=== PATIENT | male | born 1950 | race Native Hawaiian/Other Pacific Islander ===

== ENCOUNTER 2018-03-08 13:04 | Emergency (ER) | payer MEDICARE ==
[2018-03-08 13:39] VITALS: TEMP 98.2
--- NOTE | 2018-03-08 16:52 | C.PDOC ---
History Of Present Illness 67 year old male with PMHx of diabetes and HTN presents to the ED complaining of new onset abdominal pain for 2 weeks. Reports pain is intermittent in nature and does not radiate anywhere. Also reports pain is worse when he laughs, moves, or eats. Pt notes the pain started when he got shingles, reports the rash improved but the pain persists. Denies any fever, chills, cough, nausea, diarrhea, vomiting, chest pain, palpitations, shortness of breath, dizziness or urinary symptoms. Time Seen by Provider: 03/08/18 15:34 Chief Complaint (Nursing): Abdominal Pain History Per: Patient History/Exam Limitations: no limitations Onset/Duration Of Symptoms: Days Current Symptoms Are (Timing): Still Present Location Of Pain/Discomfort: Other (upper abdomen ) Radiation Of Pain To:: None Quality Of Discomfort: "Pain" Associated Symptoms: denies: Fever, Chills, Nausea, Vomiting, Diarrhea, Chest Pain, Urinary Symptoms Exacerbating Factors: Movement, Food, Other (laughing ) Past Medical History Reviewed: Historical Data, Nursing Documentation, Vital Signs Vital Signs: Last Vital Signs Temp 98.2 F 03/08/18 13:37 Pulse 77 03/08/18 13:37 Resp 20 03/08/18 13:37 BP 135/71 03/08/18 13:37 Pulse Ox 96 03/08/18 13:37 - Medical History PMH: Diabetes, HTN Surgical History: No Surg Hx Family History: States: No Known Family Hx - Social History Hx Alcohol Use: No Hx Substance Use: No - Immunization History Hx Tetanus Toxoid Vaccination: No Hx Influenza Vaccination: No Review Of Systems Except As Marked, All Systems Reviewed And Found Negative. Constitutional: Negative for: Fever, Chills Cardiovascular: Negative for: Chest Pain, Palpitations Respiratory: Negative for: Shortness of Breath Gastrointestinal: Positive for: Abdominal Pain. Negative for: Nausea, Vomiting, Diarrhea Genitourinary: Negative for: Dysuria, Incontinence, Hematuria Physical Exam - Physical Exam Appears: Non-toxic, No Acute Distress Skin: Warm, Dry Head: Atraumatic, Normacephalic Eye(s): bilateral: Normal Inspection, EOMI Nose: Normal Oral Mucosa: Moist Neck: Normal ROM, Supple Chest: Symmetrical Cardiovascular: Rhythm Regular Respiratory: Normal Breath Sounds, No Rales, No Rhonchi, No Wheezing Gastrointestinal/Abdominal: Soft, Tenderness (upper abdominal tenderness ), No Distention, No Guarding, No Rebound, Other (healing vesicular rash to left torso, do not cross the midline ) Extremity: Bilateral: Atraumatic, Normal Color And Temperature, Normal ROM Neurological/Psych: Oriented x3, Normal Speech Gait: Steady ED Course And Treatment - Laboratory Results Result Diagrams: 03/08/18 17:18 03/08/18 17:18 O2 Sat by Pulse Oximetry: 96 (RA) Pulse Ox Interpretation: Normal Progress Note: Pt was treated wiht protonix and toradol. On re-evalation, pa tient is resting comfortably, abdomen remains soft, and patient is tolerating PO. Patient feels comfortable going home. Pt was given labs and cT results and instructed strict follow up. Case discussed with DR Hart, vinh wiggins plan and discharge. Disposition - Disposition Referrals: Ronnie Matta MD [Staff Provider] - Disposition: HOME/ ROUTINE Disposition Time: 19:08 Condition: STABLE Additional Instructions: Follow up with your doctor and GI doctor in 1-2 days. Return to ER if symptoms persist or worsen. Prescriptions: Acetaminophen [Tylenol 325mg tab] 650 mg PO Q4 PRN #20 tab PRN Reason: Pain, Mild (1-3) Famotidine [Pepcid] 20 mg PO BID #10 tab Instructions: Acute Abdomen (Belly Pain), Adult (DC) Forms: [id number] (Scottish) - Clinical Impression Clinical Impression: Abdominal pain - PA / INTERNET AND [employer] BUSINESS PROJECT MANAGER / Resident Statement MD/DO has reviewed & agrees with the documentation as recorded. - Scribe Statement The provider has reviewed the documentation as recorded by the Anhibmarques Gannon All medical record entries made by the Georgiana were at my direction and personally dictated by me. I have reviewed the chart and agree that the record accurately reflects my personal performance of the history, physical exam, medical decision making, and the department course for this patient. I have also personally directed, reviewed, and agree with the discharge instructions and disposition.
[2018-03-08 17:30] LABS: BASO % 0.7 % (0.0-2.0); EOS # 0.1 K/uL (0.0-0.7); EOS % 2.2 % (0.0-4.0); HEMOGLOBIN 12.9 g/dL (12.0-18.0); LYMPH # 1.3 K/uL (1.0-4.3); LYMPH % 22.5 % (20.0-40.0); MEAN CELL VOLUME 87.3 fL (80.0-94.0); MEAN CORPUSCULAR HEMOGLOBIN 29.4 pg (27.0-31.0); MEAN CORPUSCULAR HGB CONC 33.6 g/dL (33.0-37.0); MEAN PLATELET VOLUME 6.8 fL (7.2-11.7); MONO # 0.6 K/uL (0.0-0.8); MONO % 9.6 % (0.0-10.0); NEUT # 3.9 K/uL (1.8-7.0); NRBC % 0.1 % (0.0-2.0); RBC 4.39 Mil/uL (4.40-5.90); RED CELL DISTRIBUTION WIDTH 14.3 % (11.5-14.5)
[2018-03-08 17:41] LABS: ALB/GLOB RATIO 1.2 (1.0-2.1); ALBUMIN 4.3 g/dL (3.5-5.0); CALCIUM 9.9 mg/dl (8.6-10.4)
[2018-03-08] MEDS ORDERED: Iodixanol 320 MG/ML 100 ML BOTTLE IV ONE (17:54)
[2018-03-08] MEDS ORDERED: Sodium Chloride 0.9% 1,000 ML IV ONE (18:34)
--- NOTE | 2018-03-08 18:39 | CT ---
Date of service: 03/08/2018 PROCEDURE: CT Abdomen and Pelvis with contrast HISTORY: abd pain COMPARISON: None available. TECHNIQUE: Contrast dose: 100 cc Visipaque 320 Radiation dose: Total exam DLP = 1007.74 mGy-cm. This CT exam was performed using one or more of the following dose reduction techniques: Automated exposure control, adjustment of the mA and/or kV according to patient size, and/or use of iterative reconstruction technique. FINDINGS: LOWER THORAX: Small ekbel-[id number]-[id number]-left pleural effusions and associated consolidations. LIVER: Unremarkable. GALLBLADDER AND BILE DUCTS: Unremarkable. PANCREAS: Unremarkable. SPLEEN: Unremarkable. ADRENALS: Bilateral nodular hypertrophy. KIDNEYS AND URETERS: The kidneys enhance symmetrically. Lobulated renal contours. Nonobstructing 5 mm left lower pole renal calculus. No hydronephrosis or obstructing calculus identified. Too small to characterize bilateral renal hypodensities; statistically likely cysts. VASCULATURE: No aortic aneurysm. Atherosclerotic calcifications/mural plaque present. BOWEL: Stomach is nondistended. Lack of oral contrast limits evaluation for bowel pathology. Bowel loops appear within normal limits of caliber without evidence of obstruction. APPENDIX: The appendix appears within normal limits of caliber. No secondary signs of acute appendicitis. PERITONEUM: No significant free fluid. No definite free air. LYMPH NODES: No bulky adenopathy identified. BLADDER: Unremarkable. REPRODUCTIVE: Unremarkable. BONES: Grade 1 anterolisthesis of L4 on L5. Degenerative changes. OTHER FINDINGS: None. IMPRESSION: Small bilateral pleural effusions and associated consolidations. Lobulated bilateral renal contours. Nonobstructing left lower pole renal calculus. Too small to characterize bilateral renal hypodensities; statistically likely cysts. Bilateral nodular hypertrophy of the adrenal glands.
[2018-03-08 18:45] LABS: URINE BILIRUBIN NEGATIVE (NEGATIVE); URINE BLOOD TRACE (NEGATIVE); URINE CLARITY Clear (Clear); URINE COLOR Straw (YELLOW); URINE GLUCOSE (UA) NORMAL (Normal); URINE LEUKOCYTE ESTERASE NEG Leu/uL (Negative); URINE PROTEIN NEGATIVE (NEGATIVE); URINE UROBILINOGEN NORMAL mg/dL (0.2-1.0)
[2018-03-08 19:31] VITALS: BP 128/85; PULSE 78; RESP 16
[2018-03-11 18:23] VITALS: O2SAT 96
== END 2018-03-08 19:30 | disposition home or self-care (01) ==
LOC: C.ER 13:04
DX: R10.9 Unspecified abdominal pain (principal); I10 Essential (primary) hypertension; E11.9 Type 2 diabetes mellitus without complications
CPT/HCPCS: 74177; 80053; 81001; 83690; 85025; 96374; 96375; 99284; C9113; J1885; Q9967

== ENCOUNTER 2018-07-24 08:13 | Day surgery (SDC) | payer MEDICARE ==
--- NOTE | 2018-07-24 10:23 | CP.SDSHP ---
Same Day Surgery H & P - History Proposed Procedure: US guided FNA of left thyroid nodule Pre-Op Diagnosis: Thyroid nodule - Allergies Allergies: Allergies No Known Allergies Allergy (Unverified 03/08/18 13:39) - Physical Exam Mental Status: Alert & Oriented x3 - Impression Impression: Pt with 2 cm left thyroid nodule Pt. 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
--- NOTE | 2018-07-24 10:26 | PCM.SURG1 ---
Surgeon's Initial Post Op Note - Surgeon's Notes Surgeon: Chavo Coleman MD Field Research Assistant: none Type of Anesthesia: Local Pre-Operative Diagnosis: Thyroid nodule Operative Findings: US showed a 2 cm left thyroid nodule Post-Operative Diagnosis: Thyroid nodule Operation Performed: US guided FNA of left thyroid nodule Specimen/Specimens Removed: 25 g FNA x 5 passes Estimated Blood Loss: EBL {In ML}: 0 Blood Products Given: N/A Drains Used: No Drains Post-Op Condition: Good Date of Surgery/Procedure: 07/24/18 Time of Surgery/Procedure: 10:25
--- NOTE | 2018-07-25 13:31 | US ---
PROCEDURE: Date of Procedure: 07/24/2018 PROCEDURE: 1. Ultrasound guided FNA of left thyroid nodule, 2. Ultrasound guidance for FNA Medications: 3cc 1% Lidocaine HISTORY: Enlarged left thyroid nodule. TECHNIQUE: Following informed consent and procedure time-out, a limited ultrasound patient's neck confirmed the presence of a 3 cm complex left thyroid nodule which is predominantly solid. After the patient's neck was prepped and draped in the usual sterile fashion, the skin was anesthetized with 1% lidocaine. Ultrasound-guided fine needle aspiration was then performed of the dominant left thyroid nodule. A total of 5 passes were made into the nodule with 25 gauge needle under ultrasound guidance. The FNA specimen was sent for routine pathology and genetics. Post biopsy ultrasound showed no hematoma. IMPRESSION: Ultrasound-guided FNA of the dominant left thyroid nodule.
== END 2018-07-24 11:30 | disposition home or self-care (01) ==
LOC: C.SPRAD 08:13
PROVIDERS: ATTEND Radiology Vascular & Interventional Radiology
DX: E04.2 Nontoxic multinodular goiter (principal)